=== PATIENT | female | born 1960 | race Caucasian/White ===

== ENCOUNTER 2023-10-06 10:19 | Emergency (ER) | payer OTHER, SELFPAY ==
--- NOTE | 2023-10-06 10:29 | ED.URI ---
HPI - URI/Sore Throat General Chief Complaint: Upper Respiratory Infection Stated Complaint: Cough, Bilateral Ear Pain Time Seen by Provider: 10/06/23 10:41 Source: patient and RN notes reviewed Mode of arrival: ambulatory Limitations: no limitations History of Present Illness HPI Narrative: 63-year-old female presents concern for one-week history of bilateral ear pain, worse on left side, cough, chest congestion. She reports she has been taking rwme-zwd-[id number] medications without relief. She denies fever. She reports body aches. Reports her grandson has similar symptoms. MD elicited complaint: cough and nasal congestion Related Data Home Medications Medication Instructions Recorded Confirmed atorvastatin 20 mg tablet 20 mg PO DAILY 10/06/23 10/06/23 Allergies Allergy/AdvReac Type Severity Reaction Status Date / Time No Known Allergies Allergy Verified 10/06/23 10:43 Review of Systems Review of Systems: CONSTITUTIONAL: Denies malaise, chills, sweats, or fever. EYES: Denies visual changes, redness, or discharge. ENT: Reports rhinorrhea, congestion, otalgia CARDIOVASCULAR: Denies chest pain, palpitations, or edema. RESPIRATORY: Reports cough and chest congestion. Denies dyspnea. GASTROINTESTINAL: Denies abdominal pain, nausea, vomiting, diarrhea SKIN: Denies rash or itching. MUSCULOSKELETAL: Reports myalgia. NEUROLOGIC: Denies headache. All systems reviewed & are unremarkable except as noted in HPI and below PMFSH Family History Family History (Updated 11/23/15 @ 23:19 by DOCTOR UNKNOWN) Father Hypertension Family history of heart disease in male family member before age 55 Mother Hypertension Family history of diabetes mellitus in first degree relative Family history of malignant neoplasm of breast in first degree relative Other Diabetes mellitus Family history of congestive heart failure Social History Social History Smoking status: Smoker, status unknown Alcohol intake: never Comments At time of signature, agree with nursing past medical, surgical, social and family history. There is no relevant family history pertinent to the presenting complaint Exam Narrative: GENERAL: Well-appearing, well-nourished, and in no acute distress. HEAD: Normocephalic EYES: PERRLA, conjunctivae clear ENT: Nares clear, turbinates edematous and erythematous, clear discharge. Mucous membranes moist. TM pearly valenzuela with dull light reflex bilaterally; no tragal tenderness. Oropharynx not erythematous without lesions. Tonsils not enlarged and without exudate, no drooling, no hoarseness, no trismus, uvula midline. NECK: Supple. No lymphadenopathy CHEST: Clear to auscultation, breath sounds equal. No wheezing, rhonchi, rales, or stridor. No respiratory distress, speaks in full sentences. HEART: Regular rate and rhythm. No murmur heard. SKIN: Warm, dry, no rash. NEURO: Alert and oriented x3. PSYCH: Normal mood and affect Course Course Emergency Course: Patient is aware of diagnosis, understands and agrees to treatment plan. Anticipatory guidance given. Patient agrees to follow-up as directed and is aware of reasons to seek care at the emergency department. Portions of this record may have been created with voice recognition software Level of Care: Express Care Visit Vital Signs Vital signs: Reviewed. MDM - URI/Sore Throat MDM Narrative Medical decision making narrative: Differential diagnosis considered: Kingsley virus, strep pharyngitis, allergic rhinitis, upper respiratory tract infection, sinusitis, rhinosinusitis, nasopharyngitis. viral pharyngitis, otitis media, otitis externa, pneumonia, bronchitis, viral cough syndrome, viral syndrome, and influenza. Exam findings show no acute concerns or changes; patient is non-toxic appearing and is in no distress. Patient is appropriate for outpatient treatment and follow-up. Lab Data Attestation: I reviewed the patient's lab results. Critical
[2023-10-06 10:38] VITALS: BP 124/83; PULSE 84; RESP 16; TEMP 36.8; O2SAT 95
== END 2023-10-06 10:52 | disposition home or self-care (01) ==
PROVIDERS: Emergency Provider Nurse Practitioner
DX: J40 Bronchitis, not specified as acute or chronic (principal); E78.00 Pure hypercholesterolemia, unspecified
CPT/HCPCS: 99213; G0463

== ENCOUNTER 2024-12-30 14:56 | Emergency (ER) | payer MEDICARE, SELFPAY ==
--- OUTSIDE RECORDS SUMMARY | 2024-12-30 14:59 | XMS_ITS | Clinical Summary ---
Author Organization [facility] [employer] Address [address] [place] [address] Care Team Providers Care Doughnut Dough Mixer Name Role Phone Unavailable Primary Care Provider Unavailabl e Source Comments [facility] [employer] [facility] [employer],non-owned Affiliates and Associated Physician Practices is amultiple site organization consisting of ambulatory clinics and hospital sitesin [place] and [place]. This disclosure is being madepursuant to the Care Everywhere program and may not contain all information available regarding this patient. 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 Gender Identity Not on file Sexual Orientation Not on file Plan of Treatment Health Maintenance Due Date Last Done Comments COLOGUARD (AGES 45-75) - COL ON CA SCREENING 1960 COLON MONITORING 1960 COLONOSCOPY - COLON CA SCREENING 1960 CT COLONOGRAPHY - COLON CA SCREENING 1960 Colorectal Cancer Screening 1960 FIT - COLON CA SCREENING 1960 FLEX SIG - COLON CA SCREENING 1960 LIPID TESTING 1960 MAMMOGRAM 1960 HIV SCREENING 01/15/1975 HEPATITIS C SCREENING 01/11/1978 DTAP/TDAP/TD VACCINES (1 - Tdap) 01/15/1979 PAP SMEAR 01/15/1981 PNEUMOCOCCAL VACCINE 50+ (1 of 1 - PCV) 01/15/2010 ZOSTER VACCINE (1 of 2) 01/15/2010 COVID-19 VACCINE ( - 2023-2 5 season) 2023 DEPRESSION SCREENING 04/27/2024 INFLUENZA VACCINE (#1) 2024 Respiratory Syncytial Virus (RSV) Vaccine Pt: or over 60 yrs (1 - 1-dose 75+ series) 01/15/2035 HEPATITIS B VACCINE Aged Out No longe r eligible based on patient's age to complete this topic HIB VACCINE Aged Out No longer eligi ble based on patient's age to complete this topic HPV VACCINE Aged Out No longer eligi ble based on patient's age to complete this topic MENINGOCOCCAL (Group B) VACC INE SHARED DECISION-MAKING Aged Out No longer eligibl e based on patient's age to complete this topic MENINGOCOCCAL GROUPS A/C/Y/W VACCINE Aged Out No longer eligible b ased on patient's age to complete this topic Insurance [facility]
--- OUTSIDE RECORDS SUMMARY | 2024-12-30 15:04 | XMS_ITS | Encounter Summary ---
Author Organization [facility] Address [address] [place] [address] Care Team Providers Care Molding Machine Setter Name Role Phone Unavailable Primary Care Provider Unavailabl e Encounter Details Date Type Department Care Team (Late st Contact Info) Description 04/12/2024 Lab Requisition [facility] - DermPath Lab [address] [place] [address] Shanell Valdez MD [address] [facility] [address] DEPT [place] [address] Social History Tobacco Use Types Packs/Day Years Used Date Smoking Tobacco: Never Assessed Comments Unknown Sex and Gender Information Value Date Recorded Sex Assigned at Not on file 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 Gender Identity Not on file Sexual Orientation Not on file documented as of this encounter Plan of Treatment Not on file documented as of this encounter Procedures Procedure Name Priority Date/Time Associated Diagnosis Comments DERMATOPATHOLOGY Routine 04/12/2024 11:2 2 AM TIMBER HARVESTER OPERATOR documented in this encounter Results * DERMATOPATHOLOGY (04/12/2024 11:22 AM TIMBER HARVESTER OPERATOR) Case Report Dermatopathology Report Case: [id number] Authorizing Provider: Shanell Valdez MD Collected: 04/12/2024 11:22 AM Ordering Location: [facility] - Received: 04/13/2024 12:45 PM DermPath Lab Pathologist: Jacqui Hurley MD Specimen: Skin, left 2nd finger 4 2:46 PM TIMBER HARVESTER OPERATOR DERMATOPATHOLOGY LABORATORY Final Diagnosis Specimen A. 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 AK; Non-Healing 4 2:46 PM [facility] DERMATOPATHOLOGY LABORATORY Gross Description Specimen A: Received is one formalin filled container labeled with the patient's name and designated left 2nd finger. The specimen consists of a shave biopsy measuring 10x7x1 mm. Jar 0. 4 2:46 PM [facility] DERMATOPATHOLOGY LABORATORY Microscopic Description Specimen A. SKIN, left 2nd finger: Sections reveal parakeratosis, acanthosis and keratinocyte dysmaturation which is most prominent in the lower epidermis. Broad zones of acantholysis are present. Focal nests are present in the dermis. Additional deeper sections were obtained and reviewed. 4 2:46 PM [facility] DERMATOPATHOLOGY LABORATORY Disclaimer An external and internal positive and negative controls are appropriate for the histochemical, immunohistochemical and immunofluorescence stain(s) in this case (if any), except where stated explicitly. The performance characteristics of the stain(s) cited in this report were developed and its performance characteristic determined by the Dermatopathology Laboratory at [facility], directed by Dr. Varun Pratt. These tests need not be, and therefore are not, approved by the [place] Food and Drug Administration. The tests are used for clinical purposes. Billing Codes Specimen Charges Stain Charges 11164 1 4 2:46 PM [facility] DERMATOPATHOLOGY LABORATORY Embedded Images 4 2:46 PM [facility] DERMATOPATHOLOGY LABORATORY Pathology/Cytolo gy TISSUE SPECIMEN FROM SKIN / Unknown 04/12/2024 11:22 AM TIMBER HARVESTER OPERATOR 04/13/2024 12:45 PM TIMBER HARVESTER OPERATOR Shanell Valdez MD LAB - PATHOLOGY/CYTOLOGY OR DERABLES Final Result DERMATOPATHOLOGY LABORATORY [facility] - Department of Dermatology [address], [address] [phone] documented in this encounter Visit Diagnoses Not on filedocumented in this encounter
[2024-12-30 15:08] VITALS: BP 133/61; PULSE 78; RESP 18; TEMP 36.4; O2SAT 91
--- NOTE | 2024-12-30 15:15 | ED.URI ---
HPI - URI/Sore Throat General Chief Complaint: Upper Respiratory Infection Stated Complaint: URI symptoms Time Seen by Provider: 12/30/24 15:15 Source: patient, RN notes reviewed and old records reviewed Mode of arrival: ambulatory Limitations: no limitations History of Present Illness HPI Narrative: 64 year old female who presents to [facility] care with one week history of acute cough, sinus congestion with some yellow drainage, sore throat, chest congestion and has noted wheezing. Patient reports that she is worn out. Patient reports that she has been taking DayQuil, NyQuil, and Mucinex DM with no resolution in her symptoms. Patient reports no chest pain or acute dyspnea or any fevers, O2 saturation running 91% on room air; patient reports that they normally run around 92%. Patient does have long history of tobacco use. MD elicited complaint: cough, rhinorrhea, nasal congestion and other (wheezing) Pertinent past history: other (bronchitis, tobacco abuse) Onset (ago): week(s) (1) Consistency: constant Severity: moderate Description of mucous: yellow (sinus drainage) Able to tolerate fluids by mouth: Yes Treatments prior to arrival: other (DayQuil, NyQuil, and Mucinex DM) Related Data Home Medications ?Medication ?Instructions ?Recorded ?Confirmed ?Last Taken ?Type atorvastatin 20 mg tablet 20 mg PO DAILY 10/06/23 12/30/24 Unknown History amlodipine 2.5 mg tablet mg 12/30/24 Unknown History sertraline 100 mg tablet mg 12/30/24 Unknown History Allergies Allergy/AdvReac Type Severity Reaction Status Date / Time No Known Allergies Allergy Verified 12/30/24 15:03 Review of Systems Review of Systems: CONSTITUTIONAL: Reports malaise, no chills, sweats, or fever. EYES: Denies visual changes, redness, or discharge. ENT: Reports rhinorrhea, congestion, sinus pressure, no otalgia and some scratchy sore throat. CARDIOVASCULAR: Denies chest pain, palpitations, or edema. RESPIRATORY: Reports acute frequent cough Denies dyspnea. scattered wheezing throughout lung kwong. GASTROINTESTINAL: Denies abdominal pain, nausea, vomiting, diarrhea SKIN: Denies rash or itching. MUSCULOSKELETAL: Denies myalgia. NEUROLOGIC: Denies headache. All systems reviewed & are unremarkable except as noted in HPI and below PMFSH Past Medical History Medical History Anxiety and depression Tobacco abuse Kidney stones Elevated cholesterol Bronchitis Hypertension Surgical History Surgical History H/O cervical spine surgery H/O lithotripsy Family History Family History Father Hypertension Family history of heart disease in male family member before age 55 Mother Hypertension Family history of diabetes mellitus in first degree relative Family history of malignant neoplasm of breast in first degree relative Other Diabetes mellitus Family history of congestive heart failure Social History Social History (Updated 12/31/24 @ 17:11 by Laura Gomez NP) Smoking packs per day: 1 Smoking cigarettes per day: 20.0 Years smoked: 47 Smoking pack-years: 47.00 Smoking status: Current every day smoker Tobacco type: cigarettes Alcohol intake: current Alcohol use details: social Substance use type: does not use Gender identity (if verbalized by the patient): Female Comments At time of signature, agree with nursing past medical, surgical, social and family history. There is no relevant family history pertinent to the presenting complaint Exam Narrative: GENERAL: Well-appearing, well-nourished, and in no acute distress. HEAD: Normocephalic EYES: PERRLA, conjunctivae clear ENT: Nares clear, turbinates edematous and erythematous, yellowish discharge. Mucous membranes moist. TM pearly valenzuela with dull light reflex bilaterally; no tragal tenderness. Oropharynx erythematous without lesions. Tonsils not enlarged and without exudate, no drooling, no hoarseness, no trismus, uvula midline.post nasal drainage noted NECK: Supple. No lymphadenopathy CHEST:scattered wheezing throughout lung kwong, breath sounds equal.positive for wheezing,no rhonchi, rales, or stridor. No respiratory distress, speaks in full sentences, cough productive at times SAO2 91% on room air no tachypnea noted or retractions HEART: Regular rate and rhythm. No murmur heard. SKIN: Warm, dry, no rash. NEURO: Alert and oriented x3. PSYCH: Normal mood and affect Course Course Emergency Course: Patient is aware of diagnosis, understands and agrees to treatment plan.? Anticipatory guidance given.? Patient agrees to follow-up as directed and is aware of reasons to seek care at the emergency department. Portions of this record may have been created with voice recognition software Level of Care: Express Care Visit Vital Signs Vital signs: Vital Signs Temperature 36.4 C 12/30/24 15:08 Pulse Rate 78 12/30/24 15:08 Respiratory Rate 18 12/30/24 15:08 Blood Pressure 133/61 12/30/24 15:08 Pulse Oximetry 91 12/30/24 15:08 Oxygen Delivery Room Air 12/30/24 15:08 Temperature 36.4 C 12/30/24 15:08 Pulse Rate 82 12/30/24 15:51 Respiratory Rate 20 12/30/24 15:51 Blood Pressure 133/61 12/30/24 15:08 Pulse Oximetry 91 12/30/24 15:51 Oxygen Delivery Room Air 12/30/24 15:08 Reviewed MDM - URI/Sore Throat MDM Narrative Medical decision making narrative: Differential diagnosis considered: Kingsley virus, strep pharyngitis, allergic rhinitis, upper respiratory tract infection, sinusitis, rhinosinusitis, nasopharyngitis. viral pharyngitis, otitis media, otitis externa, pneumonia, bronchitis, viral cough syndrome, viral syndrome, and influenza.? Exam findings show no acute concerns or changes; patient is non-toxic appearing and is in no distress.? Patient is appropriate for outpatient treatment and follow-up.Patient received Duo Nebulizer treatment while in express care for acute wheezing with some improvement in aeration and decrease in wheezing. Differential Diagnosis Differential diagnosis: Likely upper respiratory infection, viral infection, bronchitis and other (acute cough, tobacco abuse) Medical Records Attestation: I reviewed the patient's medical records. Lab Data Attestation: I reviewed the patient's lab results. Critical Care Time Critical Care Time Critical Care Time: No Discharge Plan Discharge Clinical Impression: Tobacco abuse Acute bronchitis Qualifiers: Bronchitis organism: unspecified organism Qualified Code(s): J20.9 - Acute bronchitis, unspecified Patient Disposition: Home Condition: Stable Instructions: Antibiotic Form, How to Stop Smoking (ED), Acute Bronchitis (ED) Additional Instructions: Increase fluids especially juices and water Ruqi-psh-lqskzxz cough and cold medicine of your choice for your symptoms Prescription cough medicine as directed--caution drowsiness and no driving or alcohol Cough tablets as directed for cough--do not bite, chew or suck on--swallow whole Continue your inhaler/nebulizer as directed Steroids as directed--take with food heat to the face 20-30 minutes 4-6 times a day for pain Salt water gargles, throat lozenges or throat sprays as desired Antibiotic as directed--finished the medication Stop smoking If your symptoms persist, change or worsen significantly before you can contact your personal physician then please, without delay, go to the emergency department for further evaluation. Follow-up with PCP in 7-10 days or sooner if needed Follow up with PCP soon in regards to your blood pressure which is elevated above threshold for referral. Blood pressure above 120/80 may indicate pre-hypertension. 133/61 Patient Language: German Prescriptions: New albuterol sulfate [Ventolin HFA] 90 mcg/actuation HFA aerosol inhaler 2 puff inhalation QID PRN (Reason: shortness of breath or wheezing) Qty: 6.7 0RF Rx Instructions: Use 4 times daily for the next 24 hours and then use as needed 4 times daily azithromycin 250 mg tablet See Rx Instructions .ROUTE .COMPLEX Qty: 6 0RF Rx Instructions: For 250 mg dose pack: take 500 mg today (day 1), then 250 mg for 4 days (days 2-5) prednisone 20 mg tablet 20 mg PO BID Qty: 10 0RF No Action atorvastatin 20 mg tablet 20 mg PO DAILY sertraline 100 mg tablet amlodipine 2.5 mg tablet Follow-up/Referrals: Elena,MD Gisel [Primary Care Provider, Unknown] Time of Disposition: 15:57 Quality [place] Coma Scale Eyes: Open Verbal: Oriented and Alert Motor: Follows Commands Kandi Coma Total Score: 15
[2024-12-30] MEDS: IPRATROPIUM BR 0.02% INH SOLN 0.5 MG/2.5 ML VIAL INHALATION (15:29)
[2024-12-30] MEDS: ALBUTEROL SULFATE NEB 2.5 MG/3 ML INH INHALATION (15:30)
[2024-12-30 15:34] VITALS: PULSE 78; RESP 20; O2SAT 91
[2024-12-30 15:51] VITALS: PULSE 82; RESP 20; O2SAT 91
== END 2024-12-30 15:59 | disposition home or self-care (01) ==
PROVIDERS: Emergency Provider Registered Nurse; PCP Family Medicine
DX: J20.9 Acute bronchitis, unspecified (principal); F17.210 Nicotine dependence, cigarettes, uncomplicated; I10 Essential (primary) hypertension; E78.00 Pure hypercholesterolemia, unspecified; F41.9 Anxiety disorder, unspecified; F32.A Depression, unspecified
CPT/HCPCS: 94640; 99213; G0463